=== PATIENT | male | born 2000 | race African-American/Black ===

== ENCOUNTER 2021-11-10 16:04 | Emergency (ER) | payer OTHER, SELFPAY ==
[2021-11-10 16:17] VITALS: BP 134/79; PULSE 63; RESP 16; TEMP 36.9; O2SAT 100
--- NOTE | 2021-11-10 16:25 | ED.MALEGU ---
HPI - Male Genitourinary General Chief complaint: Urogenital-Male Stated complaint: Covid Sx Time Seen by Provider: 11/10/21 16:41 Source: patient and RN notes reviewed Mode of arrival: ambulatory Limitations: no limitations History of Present Illness HPI Narrative: 20-year-old male presents concern for sexually transmitted disease exposure, reports he was exposed to chlamydia. He requires reports burning with urination and discharge. He denies any lesions, abdominal pain, fever. MD Complaint: possible STD exposure Related Data Home Medications Medication Instructions Recorded Confirmed cyanocobalamin (vitamin B-12) mcg 11/10/21 folic acid 11/10/21 levothyroxine [Synthroid] 11/10/21 sertraline mg 11/10/21 trazodone 11/10/21 Allergies Allergy/AdvReac Type Severity Reaction Status Date / Time azithromycin Allergy Mild Unknown Unverified 11/10/21 16:30 Penicillins Allergy Mild Unknown Verified 11/10/21 16:30 amoxicillin Allergy Unknown Unknown Verified 11/10/21 16:30 Review of Systems Review of Systems: CONSTITUTIONAL: Denies malaise, chills, sweats, or fever. GASTROINTESTINAL: Denies abdominal pain, nausea, vomiting, diarrhea GENITOURINARY: Reports dysuria, discharge SKIN: Denies rash or itching. MUSCULOSKELETAL: Denies back pain or myalgia. All systems reviewed & are unremarkable except as noted in HPI and below PMFSH Comments At time of signature, agree with nursing past medical, surgical, social and family history. There is no relevant family history pertinent to the presenting complaint Exam Narrative: GENERAL: Well-appearing, well-nourished, and in no acute distress. HEAD: Normocephalic. EYES: PERRLA, conjunctivae clear. NECK: Supple. No lymphadenopathy CHEST: Clear to auscultation. No respiratory distress. HEART: Regular rate and rhythm. SKIN: Warm, dry, no rash. NEURO: Alert and oriented x3. PSYCH: Normal mood and affect Course Course Emergency Course: Patient is aware of diagnosis, understands and agrees to treatment plan. Anticipatory guidance given. Patient agrees to follow-up as directed and is aware of reasons to seek care at the emergency department. Portions of this record may have been created with voice recognition software Level of Care: Express Care Visit Vital Signs Vital signs: Vital Signs Temperature 98.5 F 11/10/21 16:17 Pulse Rate 63 11/10/21 16:17 Respiratory Rate 16 11/10/21 16:17 Blood Pressure 134/79 11/10/21 16:17 Pulse Oximetry 100 11/10/21 16:17 Temperature 98.5 F 11/10/21 16:17 Pulse Rate 63 11/10/21 16:17 Respiratory Rate 16 11/10/21 16:17 Blood Pressure 134/79 11/10/21 16:17 Pulse Oximetry 100 11/10/21 16:17 Reviewed. MDM - Male Genitourinary MDM Narrative Medical decision making narrative: Exam findings show no acute concerns or changes; patient is non-toxic appearing and is in no distress. Patient is appropriate for outpatient treatment and follow-up. Critical Care Time Critical Care Time Critical Care Time: No Discharge Plan Discharge Clinical Impression: Exposure to STD Patient Disposition: Home, Self-Care Condition: Stable Instructions: Antibiotic Form, Sexually Transmitted Diseases (ED), Safe Sex Practices (ED) Additional Instructions: You have been tested for potential gonorrhea, chlamydia, and trichomoniasis today. A prescription has been called into your pharmacy to treat chlamydia. If gonorrhea or trichomoniasis are positive you will need to receive additional antibiotics which may include an injection. You will receive a phone call in 2-3 days with the results of today's testing. It is very important that you avoid unprotected intercourse during treatment and for 7 days AFTER TREATMENT is complete and until your partner(s) have been treated. Please encourage your partner(s) to seek testing and treatment. When you have been exposed to sexually transmitted infections, it is important that you se
== END 2021-11-10 17:02 | disposition home or self-care (01) ==
PROVIDERS: Emergency Provider Nurse Practitioner
DX: Z20.2 Contact with and (suspected) exposure to infections with a predominantly sexual mode of transmission (principal)
CPT/HCPCS: 87491; 87591; 87661; 99213; G0463

== ENCOUNTER 2022-11-02 12:53 | Emergency (ER) | payer OTHER, SELFPAY ==
[2022-11-02 13:07] VITALS: BP 133/80; PULSE 59; RESP 16; TEMP 36.7; O2SAT 99
--- NOTE | 2022-11-02 13:33 | ED.URI ---
HPI - URI/Sore Throat General Chief Complaint: Upper Respiratory Infection Stated Complaint: swollen throat Time Seen by Provider: 11/02/22 13:10 Source: patient Mode of arrival: ambulatory Limitations: no limitations History of Present Illness HPI Narrative: Ines is a 21-year-old male patient presenting to the clinic today with complaints of swollen throat time 3-4 days. He denies any fever chills. Reports that he had coughing congestion last week however this has resolved MD elicited complaint: sore throat and nasal congestion Related Data Home Medications Medication Instructions Recorded Confirmed levothyroxine 125 mcg tablet 125 mcg DIRECTED 11/10/21 11/02/22 (Synthroid) Allergies Allergy/AdvReac Type Severity Reaction Status Date / Time azithromycin Allergy Mild Unknown Unverified 11/10/21 16:30 Penicillins Allergy Mild Unknown Verified 11/10/21 16:30 amoxicillin Allergy Unknown Unknown Verified 11/10/21 16:30 Review of Systems Review of Systems: Pertinent positives per HPI. Patient denies any fever, chills, rash, headache, visual changes, dizziness, cough, shortness of breath, chest pain, palpitations, nausea, vomiting, diarrhea, constipation, abdominal pain, or any urinary issues. PMFSH Comments At the time of my signature, I reviewed and agree with the nursing past medical, surgical, social, and family history. There is no relevant family history pertinent to the patient complaint. Exam Narrative: General: Well-developed, well nourished, in no apparent distress Head: Normocephalic, atraumatic Eyes: Pupils equally round and reactive to light bilaterally, EOM intact, sclera and conjunctive clear, no discharge, lids normal Ears: TMs intact and clear, ear canals clear, no drainage, grossly hearing normal. Nose: Nares patent, no discharge, no inflammation, no sinus tenderness. Mouth: Oral pharynx without lesions or masses, good dentition, MMM. oropharynx red- tonsils surgically absent Neck: Supple, trachea midline, no enlargement of anterior or posterior cervical nodes, no thyroid masses or goiter palpable. Cardio: Regular rate and rhythm, s1 and s2 normal, no murmur appreciated. Resp: Clear to auscultation bilaterally, no rhonchi, rales, wheezing or rubs Course Course Emergency Course: Portions of this record may have been created with voice recognition software. Level of Care: Express Care Visit Vital Signs Vital signs: Vital Signs Temperature 36.7 C 11/02/22 13:07 Pulse Rate 59 L 11/02/22 13:07 Respiratory Rate 16 11/02/22 13:07 Blood Pressure 133/80 11/02/22 13:07 Pulse Oximetry 99 11/02/22 13:07 Oxygen Delivery Room Air 11/02/22 13:07 Temperature 36.7 C 11/02/22 13:07 Pulse Rate 59 L 11/02/22 13:07 Respiratory Rate 16 11/02/22 13:07 Blood Pressure 133/80 11/02/22 13:07 Pulse Oximetry 99 11/02/22 13:07 Oxygen Delivery Room Air 11/02/22 13:07 Vital signs reviewed MDM - URI/Sore Throat MDM Narrative Medical decision making narrative: at the time of visit patient resting comfortably on the exam table. Strep screen was obtained was negative in the clinic today. Supportive measures were discussed with the patient he voiced understanding discharge instructions and agrees to the treatment plan Differential Diagnosis Differential diagnosis: Likely upper respiratory infection, otitis media, sinusitis, viral infection, bronchitis, influenza, pharyngitis and other Lab Data Labs: Strep Screen Presumptive Negative *(Reference Range: Negative)* Discharge Plan Discharge Clinical Impression: Pharyngitis Patient Disposition: Home, Self-Care Condition: Stable Instructions: Antibiotic Form, Pharyngitis (ED) Additional Instructions: Strep screen was negative in the clinic today. Increase fluids and stay well hydrated Tylenol/motrin for pain/fever Flonase and OTC ant
== END 2022-11-02 13:44 | disposition home or self-care (01) ==
PROVIDERS: Emergency Provider Nurse Practitioner Family; PCP Family Medicine
DX: J02.9 Acute pharyngitis, unspecified (principal)
CPT/HCPCS: 87880; 99212; G0463

== ENCOUNTER 2024-01-21 10:45 | Emergency (ER) | payer OTHER, SELFPAY ==
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
[2024-01-21 10:53] VITALS: BP 150/107; PULSE 76; RESP 18; TEMP 36.4; O2SAT 100
[2024-01-21] MEDS: KETOROLAC (*BKC) 60 MG/2 ML VIAL IM (11:47)
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
[2024-01-21 12:40] VITALS: BP 132/90; PULSE 56; RESP 18; O2SAT 100
== END 2024-01-21 12:47 | disposition home or self-care (01) ==
PROVIDERS: Emergency Provider Emergency Medicine; PCP Family Medicine
DX: S40.012A Contusion of left shoulder, initial encounter (principal); V43.52XA Car driver injured in collision with other type car in traffic accident, initial encounter
CPT/HCPCS: 72125; 73030; 96372; 99284; J1885